=== PATIENT | male | born 1985 | race Caucasian/White ===

== ENCOUNTER 2020-09-14 15:19 | Emergency (ER) | payer SELFPAY ==
[~2020-09-14] VITALS: Ht 172.7 cm; Wt 72.6 kg
[2020-09-14 15:19] VITALS: BP_SYST 143
[2020-09-14 15:45] VITALS: BP_SYST 143
== END 2020-09-14 15:45 ==
LOC: SED 15:19
DX: Z02.89 Encounter for other administrative examinations (principal)
CPT/HCPCS: 99283